=== PATIENT | male | born 1975 | race Caucasian/White ===

== ENCOUNTER 2016-12-05 06:27 | Emergency (ER) | payer BC ==
[2016-12-05] MEDS ORDERED: KETOROLAC 60 MG/2 ML INJ FOR OR. ONE (12:00)
--- NOTE | 2016-12-05 14:17 | RAD ---
Exam performed:3 views left shoulder Indication:Left shoulder pain since fall last night Date of service:12/05/16. Comparison:None available Findings : AP radiographs of the shoulder in internal and external rotation as well as a Y-view reveal the osseous structures to be intact and well aligned.calcified nodule seen in left upper lobe. The joint space is well-preserved. The articular margins are smooth. Impression: 1. Radiographically normal shoulder.
== END 2016-12-05 07:53 | disposition home or self-care (01) ==
LOC: ER 06:27
DX: M25.512 Pain in left shoulder (principal); X58.XXXA Exposure to other specified factors, initial encounter; Y93.89 Activity, other specified; Y92.89 Other specified places as the place of occurrence of the external cause; Y99.8 Other external cause status
CPT/HCPCS: 73030; 96372; 99284; J1885

== ENCOUNTER 2021-01-21 16:19 | Emergency (ER) | payer BC, OTHER ==
[~2021-01-21] VITALS: Ht 175.3 cm; Wt 104.0 kg
[2021-01-21] MEDS ORDERED: DIPH,PERTUSS(ACELL),TET VAC/PF 0.5 ML SYRINGE. VAX IM ONE (17:30)
[2021-01-21] MEDS ORDERED: oxyCODONE/APAP 5/325 1 TAB TABLET PO ONE (17:30)
[2021-01-21] MEDS ORDERED: LIDOCAINE 1% Multi-Dose 20 ML VIAL. INJ ONE (17:30)
--- NOTE | 2021-01-21 17:40 | RAD ---
EXAM: Left hand, 3 views. HISTORY: Laceration. COMPARISON: None. FINDINGS: 3 views of the left hand are obtained. There is a comminuted fracture of the tuft of the th ird distal phalanx. There is also a mildly displaced and slightly comminuted fracture of the tuft of the second distal phalanx. There is slight amputation of the distal third phalanx soft tissues. There is a punctate density within the soft tissue defect which is likely superficial. No retained foreign body is seen. IMPRESSION: 1. Displaced and comminuted fracture of the tuft of the third distal phalanx with associated slight s oft tissue amputation. 2. Mildly displaced and slightly comminuted fracture of the tuft of the second distal phalanx. Electronically signed by: Katja Banegas MD (01/21/2021 5:38 PM) [facility]
--- NOTE | 2021-01-21 17:50 | PHYS DOC ---
Past Medical History Past Surgical History: No Surgical History (TAZ GLOVER APRN) General Adult EDM: Chief Complaint: FINGER INJURY HPI: HPI: Patient is a 45 year old male who presents with got his left 1st and 2nd fingers between a forklift and a crate. He denies numbness or tingling. Needs a tetanus. Rates his pain a 9/10. (TAZ GLOVER APRN) Review of Systems: Review of Systems: Constitutional: Denies fever or chills. [] Eyes: Denies change in visual acuity. [] HENT: Denies nasal congestion or sore throat. [] Respiratory: Denies cough or shortness of breath. [] Cardiovascular: Denies chest pain or +edema. [] GI: Denies abdominal pain, nausea, vomiting, bloody stools or diarrhea. [] : Denies dysuria. [] Musculoskeletal: Denies back pain or joint pain. +Left 1st and 2nd finger pain [] Integument: Denies rash.+ Bruising, +left 1st and 2nd finger laceration Neurologic: Denies headache, focal weakness or sensory changes. [] Endocrine: Denies polyuria or polydipsia. [] Lymphatic: Denies swollen glands. [] Psychiatric: Denies depression or anxiety. [] (TAZ GLOVER APRN) Heart Score: C/O Chest Pain: No (TAZ GLOVER APRN) Current Medications: Current Medications Medications (Trade) Dose Ordered Sig/Janice Start Time Stop Time Status Last Admin Dose Admin Diphtheria/ Tetanus/Acell Pertussis (ADACEL TDap SYRINGE) 0.5 ml ONCE ONCE 01/21/21 17:30 01/21/21 17:31 DC 01/21/21 17:30 0.5 ML Lidocaine HCl (Lidocaine 1% 20ml Vial) 20 ml 1X ONCE 01/21/21 17:30 01/21/21 17:31 DC 01/21/21 17:35 20 ML Oxycodone/ Acetaminophen (Percocet 5/325) 1 tab 1X ONCE 01/21/21 17:30 01/21/21 17:31 DC 01/21/21 17:35 1 TAB (TAZ GLOVER APRN) Allergies: Allergies: Allergies Coded Allergies Type Severity Reaction Last Updated Verified No Known Drug Allergies 01/21/21 No (EDITH GLOVERNNA M AUTOMOBILE DAMAGE APPRAISER) Physical Exam: PE: Constitutional: Well developed, well nourished, no acute distress, non-toxic appearance. [] HENT: Normocephalic, atraumatic, bilateral external ears normal, oropharynx moist, no oral exudates, nose normal. [] Eyes: PERRLA, EOMI, conjunctiva normal, no discharge. Swelling under eyes bilaterally [] Neck: Normal range of motion, no tenderness, supple, no stridor. [] Cardiovascular:Heart rate regular rhythm, no murmur [] Lungs & Thorax: Bilateral breath sounds clear to auscultation [] Abdomen: Bowel sounds normal, soft, no tenderness, no masses, no pulsatile masses. [] Skin: Warm, dry, no erythema, no rash. Left 1st and 2nd finger laceration with nail bed injury. Back: No tenderness, no CVA tenderness. [] Extremities: left 1st and 2nd finger tenderness, no cyanosis, no clubbing, ROM intact, left 1st and 2nd finger 2-3+ edema. [] Neurologic: Alert and oriented X 3, normal motor function, normal sensory fu nction, no focal deficits noted. [] Psychologic: Affect normal, judgement normal, mood normal. [] ([facility],TAZ M AUTOMOBILE DAMAGE APPRAISER) PE: Constitutional: Well developed, well nourished, no acute distress, non-toxic a ppearance HENT: Normocephalic, atraumatic Eyes: Conjunctiva normal, no discharge Lungs & Thorax: No respiratory distress, equal chest rise and fall Cardiovascular: Left radial pulse +2, CR > 3 sec to nailbeds of left 2nd and 3rd fingers Skin: Warm, dry, lacerations to palmar aspects of left 2nd and 3rd fingers, distal fingertip partial amputation flaps dusky Extremities: Tenderness to distal left 2nd and 3rd finger at site of crush injury, ROM of left 2nd and 3rd fingers limited due to pain Neurologic: Alert and oriented X 3, no focal deficits noted Psychologic: Affect normal, judgment normal (MAYI VIDAL DO) Current Patient Data: Vital Signs: Vital Signs Date Time Temp Pulse Resp B/P (MAP) Pulse Ox O2 Delivery O2 Flow Rate FiO2 01/21/21 17:35 Room Air 01/21/21 16:28 97.8 70 18 164/102 (122) 98 97.8 (TAZ GLOVER APRN) EKG: EK and read by Dr. Vidal is sinus rhythm and no STEMI (TAZ GLOVER APRN) Radiology/Procedures: Radiology/Procedures: [] Impression: [facility] [address] [place] [address] IMAGING REPORT Signed PATIENT: JOHNATHON WHITEHEAD ACCOUNT: [id number] : 1975 LOCATION: ER AGE: 45 SEX: M EXAM STATUS: PRE ER ORD. PHYSICIAN: TAZ GLOVER APRN REASON: LACERATIONS 3rd digit, PAIN PROCEDURE: HAND LEFT 3V EXAM: Left hand, 3 views. HISTORY: Laceration. COMPARISON: None. FINDINGS: 3 views of the left hand are obtained. There is a comminuted fracture of the tuft of the third distal phalanx. There is also a mildly displaced and slightly comminuted fracture of the tuft of the second distal phalanx. There is slight amputation of the distal third phalanx soft tissues. There is a punctate density within the soft tissue defect which is likely superficial. No retained foreign body is seen. IMPRESSION: 1. Displaced and comminuted fracture of the tuft of the third distal phalanx with associated slight soft tissue amputation. 2. Mildly displaced and slightly comminuted fracture of the tuft of the second distal phalanx. Electronically signed by: Katja Cruz MD (01/21/2021 5:38 PM) [facility] DICTATED and SIGNED BY: KATJA CRUZ MD DATE: 01/21/21 [id number] (TAZ GLOVER APRN) Course & Med Decision Making: Course & Med Decision Making Pertinent Labs and Imaging studies reviewed. (See chart for details) See HPI. Chest x-ray shows bilateral pleural effusion. Speaks in full clear sentences. Alert and oriented x4. Ambulatory steady gait. Bilateral lower leg 2-3+ swelling. Lungs are clear in upper lobes and diminished in lower lobes. All pulses are present. Cap refill less than 2 seconds. X-ray shows index and middle finger tuft fractures. Patient bilateral fingers are splinted with AlumaFoam. No joint laxity. Full range of motion of all joints. There is nailbed damage to the left middle finger. Nail is still intact in bed. Radial pulse present. Cap refill less than 2 seconds. Laceration repair Location: 1. Left index finger tip laceration 7 sutures in approximately an inch long curved 2. Left middle finger tip laceration with nailbed damage, 9 sutures in approximately 1 inch long Local anesthesia: 1% lidocaine with digital block Interrupted sutures/Internal sutures:1. 7 sutures 2. 9 sutures Nerve/ligament/muscle damage: None Cleaning and irrigation: Saline and chlorhexidine The appropriate timeout was taken. The area was prepped and draped in the usual sterile fashion. The wound was copiously irrigated with normal saline and chlorhexidine. Patient tolerated well without complication. Dressing was applied to the area follow-up education is given to observe for signs and symptoms of infection, bleeding and to follow-up promptly if these occur. Patient can return in 48 hours for a wound recheck. Sutures to be removed in 7 to 10 days. [] (TAZ GLOVER APRN) Dragon Disclaimer: Dragon Disclaimer: This electronic medical record was generated, in whole or in part, using a voice recognition dictation system. (TAZ GLOVER APRN) Departure Departure Impression: Primary Impression: Finger laceration Qualified Codes: S61.313A - Laceration without foreign body of left middle finger with damage to nail, initial encounter Additional Impression: Open fracture of tuft of distal phalanx of finger Disposition: 01 HOME / SELF CARE / HOMELESS Condition: STABLE Referrals: NO PCP (PCP) Patient Instructions: Finger Fracture, Fingertip Laceration Additional Instructions: Follow-up with work comp doctors. Watch for signs infection. Keep clean and covered. Take the antibiotic as prescribed and with food. Take ibuprofen or Tylenol to help with pain. Use ice and elevation to help with swelling and pain. Scripts Tramadol Hcl (TRAMADOL HCL) 50 Mg Tablet 50 MG PO Q6HRS PRN for PAIN, #10 TAB Prov: TAZ GLOVER APRN 01/21/21 Cephalexin (KEFLEX) 500 Mg Capsule 1 CAP PO QID, #40 CAP Prov: TAZ GLOVER APRN 01/21/21 Attending Signature Attending Signature I have personally interviewed and examined the patient. All charts, labs, and imaging studies were reviewed. I agree with the PA/MANAGER OF BUSINESS's findings, exam, and plan. (MAYI VIDAL DO) Attending Signature I have participated in the care of this patient and I have reviewed and agree with all pertinent clinical information above including history, exam, and recommendations. (TAZ GLOVER APRN) TAZ GLOVER APRN Jan 21, 2021 17:50 MAYI VIDAL DO Jan 22, 2021 06:56
[2021-01-21] MEDS ORDERED: cefTRIAXone IM 1 GM VIAL IM ONE (18:00)
[2021-01-21] MEDS ORDERED: HYDR-2761 PO (21:26)
[2021-01-21] MEDS ORDERED: CEPH500C PO (21:26)
[2021-01-21] MEDS ORDERED: TRAM50TA PO (21:41)
[2021-01-21 21:45] VITALS: BP 142/86
== END 2021-01-21 21:40 | disposition home or self-care (01) ==
LOC: ER 16:19
DX: S62.631A Displaced fracture of distal phalanx of left index finger, initial encounter for closed fracture (principal); S62.633A Displaced fracture of distal phalanx of left middle finger, initial encounter for closed fracture; W23.0XXA Caught, crushed, jammed, or pinched between moving objects, initial encounter; Y93.89 Activity, other specified; Y92.89 Other specified places as the place of occurrence of the external cause; Y99.8 Other external cause status
CPT/HCPCS: 29130; 73130; 90471; 90715; 96372; 99284; J0696; J3490